=== PATIENT | female | born 1950 | race Caucasian/White ===

== ENCOUNTER 2018-09-18 23:20 | Inpatient (IN) | payer OTHER ==
[2018-09-19 00:14] LABS: ADD MAN DIFF? NO
[2018-09-19] MEDS: SOD CHLORIDE 0.9% 1,000 ML IV (00:17)
[2018-09-19] MEDS: ONDANSETRON 4 MG INJ IV (00:18)
[2018-09-19] MEDS: morphine 4 MG/ML VIAL IV (00:18)
[2018-09-19] MEDS: BELLADONNA/PHENOBARBITAL TAB PO (00:27)
[2018-09-19] MEDS: LIDOCAINE/MYLANTA 40 ML BTL PO (00:27)
[2018-09-19] MEDS: FAMOTIDINE 20 MG INJ IV ×2 (00:27→09:44)
[2018-09-19 00:35] LABS: WHITE BLOOD COUNT 10.4 10^3/ul (4.8-10.8)
[2018-09-19 00:35] LABS: BASOPHILS % 0.3 % (0.0-2.0); EOSINOPHILS # 0.1 10^3/ul (0.0-0.5); EOSINOPHILS % 0.9 % (0.0-7.0); HEMATOCRIT 38.4 % (37.0-47.0); HEMOGLOBIN 12.7 g/dl (12.0-16.0); LYMPHOCYTES # 2.5 10^3/ul (0.8-2.9); LYMPHOCYTES % 23.7 % (15.0-51.0); MEAN CORPUSCULAR HEMOGLOBIN 26.8 pg (29.0-33.0); MEAN CORPUSCULAR HGB CONC 33.1 g/dl (32.0-37.0); MEAN PLATELET VOLUME 10.2 fl (7.4-10.4); MONOCYTE # 0.7 10^3/ul (0.3-0.9); NEUTROPHIL # 7.1 10^3/ul (1.6-7.5); NEUTROPHILS % 67.7 % (39.0-77.0); PLATELET COUNT 263 10^3/UL (140-415); RED BLOOD COUNT 4.74 10^6/ul (4.20-5.40)
[2018-09-19 00:53] LABS: ALANINE AMINOTRANSFERASE 61 IU/L (13-69); ALBUMIN 4.9 g/dl (3.3-4.9); ALBUMIN/GLOBULIN RATIO 1.81; ALKALINE PHOSPHATASE 125 IU/L (42-121); ANION GAP 15 (5-13); ASPARTATE AMINO TRANSFERASE 133 IU/L (15-46); BILIRUBIN,INDIRECT 0.3 mg/dl (0-1.1); BILIRUBIN,TOTAL 0.3 mg/dl (0.2-1.3); BLOOD UREA NITROGEN 23 mg/dl (7-20); CARBON DIOXIDE 31 mmol/L (21-31); CHLORIDE 98 mmol/L (97-110); CREATININE 0.73 mg/dl (0.44-1.00); Estimated GFR > 60 mL/min (>60); GLUCOSE 116 mg/dl (70-220); LIPASE 84 U/L (23-300); POTASSIUM 3.1 mmol/L (3.5-5.1); SODIUM 144 mmol/L (135-144); TOTAL PROTEIN 7.6 g/dl (6.1-8.1)
[2018-09-19 00:55] LABS: INR 0.82; PROTIME 11.3 Sec (11.9-14.9); PT RATIO 0.9
[2018-09-19 01:04] LABS: TROPONIN-I < 0.012 ng/ml (0.000-0.120)
[2018-09-19 01:14] LABS: LACTIC ACID 2.2 mmol/L (0.5-2.0)
[2018-09-19 02:17] LABS: ADD UMIC NO; UR ASCORBIC ACID NEGATIVE (NEGATIVE); UR BILIRUBIN (Dip) NEGATIVE (NEGATIVE); UR BLOOD (Dip) NEGATIVE (NEGATIVE); UR CLARITY CLEAR (CLEAR); UR COLOR STRAW (YELLOW); UR GLUCOSE (Dip) NEGATIVE (NEGATIVE); UR KETONES (Dip) 1+ mg/dL (NEGATIVE); UR LEUKOCYTE ESTERASE (Dip) NEGATIVE Leu/ul (NEGATIVE); UR NITRITE (Dip) NEGATIVE (NEGATIVE); UR SPECIFIC GRAVITY (Dip) 1.011 (1.003-1.030); UR TOTAL PROTEIN (Dip) NEGATIVE (NEGATIVE); UR UROBILINOGEN (Dip) NEGATIVE (NEGATIVE)
[2018-09-19] MEDS: METOCLOPRAMIDE 10 MG INJ IV (03:12)
[2018-09-19] MEDS ORDERED: ACETAMINOPHEN 325 MG TAB PO (03:30)
[2018-09-19] MEDS ORDERED: ONDANSETRON 4 MG INJ IV ×2 (03:30→06:30)
[2018-09-19] MEDS ORDERED: NACL 0.9% 3 ML SYG IV (06:30)
[2018-09-19] MEDS ORDERED: NITROGLYCERIN (SL) 0.4 MG TAB SL ×2 (06:30)
[2018-09-19] MEDS: DEXTROSE 5%-0.45% NACL 1,000 ML IV ×2 (06:45→22:03)
[2018-09-19 08:18] LABS: ADD MAN DIFF? NO
[2018-09-19 08:25] LABS: BASOPHILS % 0.2 % (0.0-2.0); EOSINOPHILS % 0.2 % (0.0-7.0); HEMATOCRIT 34.5 % (37.0-47.0); HEMOGLOBIN 11.2 g/dl (12.0-16.0); LYMPHOCYTES # 1.2 10^3/ul (0.8-2.9); LYMPHOCYTES % 23.6 % (15.0-51.0); MEAN CORPUSCULAR HEMOGLOBIN 26.7 pg (29.0-33.0); MEAN CORPUSCULAR HGB CONC 32.5 g/dl (32.0-37.0); MEAN CORPUSCULAR VOLUME 82.1 fl (82.0-101.0); MEAN PLATELET VOLUME 10.1 fl (7.4-10.4); MONOCYTE # 0.5 10^3/ul (0.3-0.9); MONOCYTES % 9.7 % (0.0-11.0); NEUTROPHIL # 3.5 10^3/ul (1.6-7.5); NEUTROPHILS % 66.1 % (39.0-77.0); PLATELET COUNT 236 10^3/UL (140-415); RED CELL DISTRIBUTION WIDTH 13.2 % (11.5-14.5)
[2018-09-19 08:25] LABS: WHITE BLOOD COUNT 5.3 10^3/ul (4.8-10.8)
[2018-09-19 08:59] LABS: ALANINE AMINOTRANSFERASE 212 IU/L (13-69); ALBUMIN 3.6 g/dl (3.3-4.9); ALBUMIN/GLOBULIN RATIO 1.33; ALKALINE PHOSPHATASE 120 IU/L (42-121); ANION GAP 8 (5-13); ASPARTATE AMINO TRANSFERASE 347 IU/L (15-46); BILIRUBIN,INDIRECT 0.4 mg/dl (0-1.1); BILIRUBIN,TOTAL 0.4 mg/dl (0.2-1.3); BLOOD UREA NITROGEN 13 mg/dl (7-20); CALCIUM 8.2 mg/dl (8.4-10.2); CARBON DIOXIDE 32 mmol/L (21-31); CHLORIDE 102 mmol/L (97-110); CHOL/HDL RATIO 3.3 RATIO; CHOLESTEROL 181 mg/dl (100-200); CREATININE 0.59 mg/dl (0.44-1.00); Estimated GFR > 60 mL/min (>60); GLUCOSE 117 mg/dl (70-220); HDL CHOLESTEROL 54 mg/dl (33-92); LDL CHOLESTEROL,CALCULATED 116 mg/dl; POTASSIUM 3.1 mmol/L (3.5-5.1); SODIUM 142 mmol/L (135-144); TOTAL PROTEIN 6.3 g/dl (6.1-8.1); TRIGLYCERIDES 53 mg/dl (0-149)
[2018-09-19] MEDS: POTASSIUM CHLORIDE 50 ML IVPB (09:47)
[2018-09-19] MEDS: morphine 2 MG INJ IV (10:53)
[2018-09-19] MEDS ORDERED: HYDROCHLOROTHIAZIDE 12.5 MG CAP PO (12:00)
[2018-09-19] MEDS ORDERED: AMLODIPINE 10 MG TAB PO (12:00)
[2018-09-19] MEDS ORDERED: LORATADINE 10 MG TAB PO (12:00)
[2018-09-19] MEDS: PIPER-TAZO 3.375 GM IV (PMX) 100 ML IVPB ×2 (16:10→22:03)
[2018-09-19] MEDS: PANTOPRAZOLE (EC) 40 MG TAB PO (16:48)
[2018-09-19] MEDS: POTASSIUM CHLORIDE (SR) 20 MEQ TAB PO (16:48)
[2018-09-19] MEDS: BARIUM SULF 2% 450 ML BTL (BERRY SMOOTHIE) PO (16:48)
[2018-09-19] MEDS: GABAPENTIN 100 MG CAP PO ×2 (16:49→22:03)
[2018-09-19] MEDS: HEPARIN 5,000 UNIT/1 ML VIAL SC (22:07)
[2018-09-20] MEDS: DEXTROSE 5%-0.45% NACL 1,000 ML IV ×3 (01:48→22:05)
[2018-09-20 05:21] LABS: ADD MAN DIFF? NO
[2018-09-20 05:25] LABS: WHITE BLOOD COUNT 4.4 10^3/ul (4.8-10.8)
[2018-09-20 05:25] LABS: BASOPHILS % 0.7 % (0.0-2.0); EOSINOPHILS # 0.2 10^3/ul (0.0-0.5); EOSINOPHILS % 3.4 % (0.0-7.0); HEMATOCRIT 35.2 % (37.0-47.0); HEMOGLOBIN 11.2 g/dl (12.0-16.0); LYMPHOCYTES # 1.8 10^3/ul (0.8-2.9); LYMPHOCYTES % 41.5 % (15.0-51.0); MEAN CORPUSCULAR HGB CONC 31.8 g/dl (32.0-37.0); MEAN CORPUSCULAR VOLUME 84.8 fl (82.0-101.0); MEAN PLATELET VOLUME 9.6 fl (7.4-10.4); MONOCYTE # 0.5 10^3/ul (0.3-0.9); MONOCYTES % 10.2 % (0.0-11.0); NEUTROPHIL # 1.9 10^3/ul (1.6-7.5); PLATELET COUNT 218 10^3/UL (140-415); RED BLOOD COUNT 4.15 10^6/ul (4.20-5.40); RED CELL DISTRIBUTION WIDTH 13.4 % (11.5-14.5)
[2018-09-20 05:55] LABS: LACTIC ACID 0.7 mmol/L (0.5-2.0)
[2018-09-20 06:01] LABS: ANION GAP 5 (5-13); BLOOD UREA NITROGEN 6 mg/dl (7-20); CALCIUM 7.9 mg/dl (8.4-10.2); CARBON DIOXIDE 32 mmol/L (21-31); CHLORIDE 106 mmol/L (97-110); CREATININE 0.61 mg/dl (0.44-1.00); Estimated GFR > 60 mL/min (>60); GLUCOSE 102 mg/dl (70-220); MAGNESIUM 2.2 mg/dl (1.7-2.5); PHOSPHORUS 2.9 mg/dl (2.5-4.9); POTASSIUM 3.6 mmol/L (3.5-5.1); SODIUM 143 mmol/L (135-144)
[2018-09-20] MEDS: HYDROCHLOROTHIAZIDE 12.5 MG CAP PO (06:03)
[2018-09-20] MEDS: PIPER-TAZO 3.375 GM IV (PMX) 100 ML IVPB ×3 (06:03→21:11)
[2018-09-20] MEDS: PANTOPRAZOLE (EC) 40 MG TAB PO (06:03)
[2018-09-20] MEDS: HEPARIN 5,000 UNIT/1 ML VIAL SC ×2 (06:09→21:14)
[2018-09-20] MEDS: LORATADINE 10 MG TAB PO (08:45)
[2018-09-20] MEDS: AMLODIPINE 10 MG TAB PO (08:45)
[2018-09-20] MEDS: GABAPENTIN 100 MG CAP PO ×3 (08:45→21:11)
[2018-09-20] MEDS: POTASSIUM CHLORIDE (SR) 20 MEQ TAB PO (11:49)
[2018-09-20 16:51] LABS: ADD UMIC NO; UR ASCORBIC ACID NEGATIVE (NEGATIVE); UR BILIRUBIN (Dip) NEGATIVE (NEGATIVE); UR BLOOD (Dip) NEGATIVE (NEGATIVE); UR CLARITY CLEAR (CLEAR); UR COLOR COLORLESS (YELLOW); UR GLUCOSE (Dip) NEGATIVE (NEGATIVE); UR KETONES (Dip) NEGATIVE (NEGATIVE); UR LEUKOCYTE ESTERASE (Dip) NEGATIVE Leu/ul (NEGATIVE); UR NITRITE (Dip) NEGATIVE (NEGATIVE); UR SPECIFIC GRAVITY (Dip) 1.004 (1.003-1.030); UR TOTAL PROTEIN (Dip) NEGATIVE (NEGATIVE); UR UROBILINOGEN (Dip) NEGATIVE (NEGATIVE)
[2018-09-21] MEDS: DEXTROSE 5%-0.45% NACL 1,000 ML IV (03:19)
[2018-09-21] MEDS ORDERED: HYDROCORTISONE 1% 28 GM CR TOP (05:00)
[2018-09-21 05:08] LABS: ADD MAN DIFF? NO
[2018-09-21 05:10] LABS: BASOPHILS % 0.8 % (0.0-2.0); EOSINOPHILS # 0.3 10^3/ul (0.0-0.5); HEMATOCRIT 35.4 % (37.0-47.0); HEMOGLOBIN 11.5 g/dl (12.0-16.0); LYMPHOCYTES % 42.5 % (15.0-51.0); MEAN CORPUSCULAR HEMOGLOBIN 26.8 pg (29.0-33.0); MEAN CORPUSCULAR HGB CONC 32.5 g/dl (32.0-37.0); MEAN CORPUSCULAR VOLUME 82.5 fl (82.0-101.0); MEAN PLATELET VOLUME 9.6 fl (7.4-10.4); MONOCYTE # 0.5 10^3/ul (0.3-0.9); MONOCYTES % 10.6 % (0.0-11.0); NEUTROPHIL # 1.8 10^3/ul (1.6-7.5); NEUTROPHILS % 38.9 % (39.0-77.0); PLATELET COUNT 229 10^3/UL (140-415); RED BLOOD COUNT 4.29 10^6/ul (4.20-5.40); RED CELL DISTRIBUTION WIDTH 13.3 % (11.5-14.5)
[2018-09-21 05:10] LABS: WHITE BLOOD COUNT 4.7 10^3/ul (4.8-10.8)
[2018-09-21 05:38] LABS: ALANINE AMINOTRANSFERASE 133 IU/L (13-69); ALBUMIN 3.8 g/dl (3.3-4.9); ALBUMIN/GLOBULIN RATIO 1.72; ALKALINE PHOSPHATASE 97 IU/L (42-121); AMYLASE 79 U/L (11-123); ANION GAP 10 (5-13); ASPARTATE AMINO TRANSFERASE 63 IU/L (15-46); BILIRUBIN,INDIRECT 0.3 mg/dl (0-1.1); BILIRUBIN,TOTAL 0.3 mg/dl (0.2-1.3); BLOOD UREA NITROGEN 11 mg/dl (7-20); CARBON DIOXIDE 31 mmol/L (21-31); CHLORIDE 102 mmol/L (97-110); CREATININE 0.63 mg/dl (0.44-1.00); Estimated GFR > 60 mL/min (>60); GLUCOSE 107 mg/dl (70-220); LIPASE 95 U/L (23-300); POTASSIUM 3.2 mmol/L (3.5-5.1); SODIUM 143 mmol/L (135-144)
[2018-09-21 05:39] LABS: LACTIC ACID 0.9 mmol/L (0.5-2.0)
[2018-09-21] MEDS: PIPER-TAZO 3.375 GM IV (PMX) 100 ML IVPB (05:54)
[2018-09-21] MEDS: HEPARIN 5,000 UNIT/1 ML VIAL SC (05:55)
[2018-09-21] MEDS: HYDROCHLOROTHIAZIDE 12.5 MG CAP PO (05:56)
[2018-09-21] MEDS: PANTOPRAZOLE (EC) 40 MG TAB PO (06:01)
[2018-09-21] MEDS: TRIMETHOPRIM/SULFAMETHOX (DS) TAB PO (09:06)
[2018-09-21] MEDS: GABAPENTIN 100 MG CAP PO (09:06)
[2018-09-21] MEDS: LORATADINE 10 MG TAB PO (09:07)
[2018-09-21] MEDS: POTASSIUM CHLORIDE (SR) 20 MEQ TAB PO (09:07)
[2018-09-21] MEDS: AMLODIPINE 10 MG TAB PO (09:09)
== END 2018-09-21 10:00 | disposition home or self-care (01) | DRG 690 ==
LOC: MS1 09-20 21:42 → E/R 23:20
DX: N39.0 Urinary tract infection, site not specified (principal); E87.2 Acidosis; I82.512 Chronic embolism and thrombosis of left femoral vein; B96.1 Klebsiella pneumoniae [K. pneumoniae] as the cause of diseases classified elsewhere; E87.6 Hypokalemia; I10 Essential (primary) hypertension; K21.9 Gastro-esophageal reflux disease without esophagitis; Z79.01 Long term (current) use of anticoagulants; G62.9 Polyneuropathy, unspecified; K57.30 Diverticulosis of large intestine without perforation or abscess without bleeding; R74.0 Nonspecific elevation of levels of transaminase and lactic acid dehydrogenase [LDH]
CPT/HCPCS: 36415; 71045; 74176; 76705; 78226; 80048; 80053; 80061; 81003; 82150; 83605; 83690; 83735; 84100; 84484; 85025; 85610; 87040; 87086; 87591; 93005; 96374; 96375; 99285-25

== ENCOUNTER 2018-10-10 11:27 | Emergency (ER) | payer OTHER ==
[2018-10-10] MEDS: SOD CHLORIDE 0.9% 500 ML IV (14:54)
[2018-10-10] MEDS: morphine 4 MG/ML VIAL IV (14:54)
[2018-10-10 14:55] LABS: ADD MAN DIFF? NO
[2018-10-10 15:03] LABS: BASOPHILS % 0.5 % (0.0-2.0); EOSINOPHILS # 0.1 10^3/ul (0.0-0.5); EOSINOPHILS % 0.9 % (0.0-7.0); LYMPHOCYTES # 1.3 10^3/ul (0.8-2.9); LYMPHOCYTES % 19.5 % (15.0-51.0); MEAN CORPUSCULAR HEMOGLOBIN 26.7 pg (29.0-33.0); MEAN CORPUSCULAR HGB CONC 32.4 g/dl (32.0-37.0); MEAN CORPUSCULAR VOLUME 82.2 fl (82.0-101.0); MEAN PLATELET VOLUME 9.7 fl (7.4-10.4); MONOCYTE # 0.5 10^3/ul (0.3-0.9); MONOCYTES % 7.3 % (0.0-11.0); NEUTROPHIL # 4.6 10^3/ul (1.6-7.5); NEUTROPHILS % 71.5 % (39.0-77.0); PLATELET COUNT 191 10^3/UL (140-415); RED CELL DISTRIBUTION WIDTH 12.9 % (11.5-14.5)
[2018-10-10 15:03] LABS: WHITE BLOOD COUNT 6.4 10^3/ul (4.8-10.8)
[2018-10-10 15:31] LABS: ALANINE AMINOTRANSFERASE 37 IU/L (13-69); ALBUMIN 4.2 g/dl (3.3-4.9); ALKALINE PHOSPHATASE 83 IU/L (42-121); ANION GAP 10 (5-13); ASPARTATE AMINO TRANSFERASE 40 IU/L (15-46); BILIRUBIN,INDIRECT 0.3 mg/dl (0-1.1); BILIRUBIN,TOTAL 0.3 mg/dl (0.2-1.3); BLOOD UREA NITROGEN 13 mg/dl (7-20); CALCIUM 9.1 mg/dl (8.4-10.2); CARBON DIOXIDE 33 mmol/L (21-31); CHLORIDE 98 mmol/L (97-110); CREATININE 0.63 mg/dl (0.44-1.00); Estimated GFR > 60 mL/min (>60); GLUCOSE 102 mg/dl (70-220); LIPASE 36 U/L (23-300); POTASSIUM 3.2 mmol/L (3.5-5.1); SODIUM 141 mmol/L (135-144); TOTAL PROTEIN 7.7 g/dl (6.1-8.1)
[2018-10-10 15:36] LABS: ADD UMIC YES; UR ASCORBIC ACID NEGATIVE (NEGATIVE); UR BILIRUBIN (Dip) NEGATIVE (NEGATIVE); UR BLOOD (Dip) 1+ mg/dL (NEGATIVE); UR CLARITY CLEAR (CLEAR); UR COLOR YELLOW (YELLOW); UR GLUCOSE (Dip) NEGATIVE (NEGATIVE); UR KETONES (Dip) 1+ mg/dL (NEGATIVE); UR LEUKOCYTE ESTERASE (Dip) 1+ Leu/ul (NEGATIVE); UR NITRITE (Dip) NEGATIVE (NEGATIVE); UR RBC 3 /HPF (0-5); UR SPECIFIC GRAVITY (Dip) 1.009 (1.003-1.030); UR TOTAL PROTEIN (Dip) NEGATIVE (NEGATIVE); UR UROBILINOGEN (Dip) NEGATIVE (NEGATIVE); UR WBC 6 /HPF (0-5)
[2018-10-10] MEDS: POTASSIUM CHLORIDE (SR) 20 MEQ TAB PO (17:16)
== END 2018-10-10 17:20 | disposition home or self-care (01) ==
LOC: E/R 11:27
DX: E87.6 Hypokalemia (principal); K52.9 Noninfective gastroenteritis and colitis, unspecified; I10 Essential (primary) hypertension
CPT/HCPCS: 71045; 74176; 80053; 81001; 83690; 85025; 96361; 96374; 99285-25

== ENCOUNTER 2018-11-16 15:31 | Inpatient (IN) | payer OTHER ==
[2018-11-16 19:13] LABS: ADD MAN DIFF? NO
[2018-11-16 19:14] LABS: WHITE BLOOD COUNT 10.7 10^3/ul (4.8-10.8)
[2018-11-16 19:14] LABS: BASOPHILS % 0.1 % (0.0-2.0); EOSINOPHILS % 0.2 % (0.0-7.0); HEMATOCRIT 37.8 % (37.0-47.0); HEMOGLOBIN 12.3 g/dl (12.0-16.0); LYMPHOCYTES # 1.4 10^3/ul (0.8-2.9); LYMPHOCYTES % 12.8 % (15.0-51.0); MEAN CORPUSCULAR HEMOGLOBIN 26.5 pg (29.0-33.0); MEAN CORPUSCULAR HGB CONC 32.5 g/dl (32.0-37.0); MEAN CORPUSCULAR VOLUME 81.5 fl (82.0-101.0); MEAN PLATELET VOLUME 9.2 fl (7.4-10.4); MONOCYTE # 0.7 10^3/ul (0.3-0.9); MONOCYTES % 6.6 % (0.0-11.0); NEUTROPHIL # 8.6 10^3/ul (1.6-7.5); NEUTROPHILS % 79.7 % (39.0-77.0); PLATELET COUNT 241 10^3/UL (140-415); RED BLOOD COUNT 4.64 10^6/ul (4.20-5.40); RED CELL DISTRIBUTION WIDTH 13.4 % (11.5-14.5)
[2018-11-16] MEDS: SOD CHLORIDE 0.9% 1,000 ML IV ×3 (19:15→22:27)
[2018-11-16] MEDS: ONDANSETRON 4 MG INJ IV ×2 (19:15→20:51)
[2018-11-16] MEDS: morphine 4 MG/ML VIAL IV (19:15)
[2018-11-16 19:25] LABS: ADD UMIC NO; UR ASCORBIC ACID NEGATIVE (NEGATIVE); UR BILIRUBIN (Dip) NEGATIVE (NEGATIVE); UR BLOOD (Dip) NEGATIVE (NEGATIVE); UR CLARITY CLEAR (CLEAR); UR COLOR YELLOW (YELLOW); UR GLUCOSE (Dip) NEGATIVE (NEGATIVE); UR KETONES (Dip) NEGATIVE (NEGATIVE); UR LEUKOCYTE ESTERASE (Dip) NEGATIVE Leu/ul (NEGATIVE); UR NITRITE (Dip) NEGATIVE (NEGATIVE); UR SPECIFIC GRAVITY (Dip) 1.011 (1.003-1.030); UR TOTAL PROTEIN (Dip) NEGATIVE (NEGATIVE); UR UROBILINOGEN (Dip) 2+ mg/dL (NEGATIVE)
[2018-11-16 19:33] LABS: ALANINE AMINOTRANSFERASE 308 IU/L (13-69); ALBUMIN 4.2 g/dl (3.3-4.9); ALBUMIN/GLOBULIN RATIO 1.35; ALKALINE PHOSPHATASE 179 IU/L (42-121); AMYLASE 537 U/L (11-123); ANION GAP 4 (5-13); ASPARTATE AMINO TRANSFERASE 581 IU/L (15-46); BILIRUBIN,INDIRECT 0.4 mg/dl (0-1.1); BILIRUBIN,TOTAL 0.4 mg/dl (0.2-1.3); BLOOD UREA NITROGEN 17 mg/dl (7-20); CALCIUM 9.6 mg/dl (8.4-10.2); CARBON DIOXIDE 37 mmol/L (21-31); CHLORIDE 99 mmol/L (97-110); CREATININE 0.77 mg/dl (0.44-1.00); Estimated GFR > 60 mL/min (>60); GLUCOSE 129 mg/dl (70-220); SODIUM 140 mmol/L (135-144); TOTAL PROTEIN 7.3 g/dl (6.1-8.1)
[2018-11-16 19:36] LABS: INR 0.87; PROTIME 11.9 Sec (11.9-14.9); PT RATIO 0.9
[2018-11-16 19:44] LABS: TROPONIN-I < 0.012 ng/ml (0.000-0.120)
[2018-11-16 19:53] LABS: LIPASE 5742 U/L (23-300)
[2018-11-16 20:02] LABS: PARTIAL THROMBOPLASTIN TIME 26.6 Sec (23.0-35.0)
[2018-11-16] MEDS ORDERED: ONDANSETRON 4 MG INJ IV (20:30)
[2018-11-16] MEDS ORDERED: ACETAMINOPHEN 325 MG TAB PO (20:30)
[2018-11-16] MEDS: HYDROmorphONE 1 MG/ML SYG IV (20:51)
[2018-11-16] MEDS: IOHEXOL 300MG/ML 150 ML BTL (20:57)
[2018-11-16] MEDS: SOD CHLORIDE 0.9% 100 ML (20:57)
[2018-11-16] MEDS ORDERED: ACETAMINOPHEN 650 MG SUPP PR (21:00)
[2018-11-16] MEDS ORDERED: NACL 0.9% 3 ML SYG IV (21:00)
[2018-11-16] MEDS ORDERED: morphine 2 MG INJ IV (21:00)
[2018-11-16] MEDS ORDERED: hydrALAzine 20 MG INJ IV (21:00)
[2018-11-16] MEDS: POTASSIUM CHLORIDE 100 ML IVPB (22:27)
[2018-11-17] MEDS: POTASSIUM CHLORIDE 100 ML IVPB ×3 (00:24→05:30)
[2018-11-17] MEDS: SOD CHLORIDE 0.9% 1,000 ML IV ×4 (04:56→23:54)
[2018-11-17] MEDS: PANTOPRAZOLE 40 MG INJ IV (05:31)
[2018-11-17 06:46] LABS: ADD MAN DIFF? NO
[2018-11-17 06:55] LABS: BASOPHILS % 0.3 % (0.0-2.0); EOSINOPHILS # 0.1 10^3/ul (0.0-0.5); HEMATOCRIT 34.2 % (37.0-47.0); HEMOGLOBIN 11.1 g/dl (12.0-16.0); LYMPHOCYTES # 1.4 10^3/ul (0.8-2.9); LYMPHOCYTES % 19.7 % (15.0-51.0); MEAN CORPUSCULAR HEMOGLOBIN 26.9 pg (29.0-33.0); MEAN CORPUSCULAR HGB CONC 32.5 g/dl (32.0-37.0); MEAN PLATELET VOLUME 9.8 fl (7.4-10.4); MONOCYTE # 0.5 10^3/ul (0.3-0.9); MONOCYTES % 7.7 % (0.0-11.0); PLATELET COUNT 240 10^3/UL (140-415); RED BLOOD COUNT 4.12 10^6/ul (4.20-5.40); RED CELL DISTRIBUTION WIDTH 13.6 % (11.5-14.5)
[2018-11-17 07:23] LABS: ALANINE AMINOTRANSFERASE 273 IU/L (13-69); ALBUMIN 3.7 g/dl (3.3-4.9); ALBUMIN/GLOBULIN RATIO 1.27; ALKALINE PHOSPHATASE 132 IU/L (42-121); ANION GAP 9 (5-13); ASPARTATE AMINO TRANSFERASE 233 IU/L (15-46); BILIRUBIN,INDIRECT 0.5 mg/dl (0-1.1); BILIRUBIN,TOTAL 0.5 mg/dl (0.2-1.3); BLOOD UREA NITROGEN 9 mg/dl (7-20); CALCIUM 8.7 mg/dl (8.4-10.2); CARBON DIOXIDE 29 mmol/L (21-31); CHLORIDE 103 mmol/L (97-110); CHOL/HDL RATIO 2.9 RATIO; CHOLESTEROL 176 mg/dl (100-200); Estimated GFR > 60 mL/min (>60); GLUCOSE 104 mg/dl (70-220); HDL CHOLESTEROL 60 mg/dl (33-92); LDL CHOLESTEROL,CALCULATED 103 mg/dl; MAGNESIUM 1.9 mg/dl (1.7-2.5); POTASSIUM 4.2 mmol/L (3.5-5.1); SODIUM 141 mmol/L (135-144); TOTAL PROTEIN 6.6 g/dl (6.1-8.1); TRIGLYCERIDES 65 mg/dl (0-149)
[2018-11-17] MEDS: HYDROCHLOROTHIAZIDE 12.5 MG CAP PO (10:48)
[2018-11-17] MEDS: AMLODIPINE 10 MG TAB PO (10:48)
[2018-11-17 12:36] LABS: LIPASE 193 U/L (23-300)
[2018-11-17] MEDS: GABAPENTIN 100 MG CAP PO ×2 (13:14→21:01)
[2018-11-18] MEDS: FAMOTIDINE 20 MG INJ IV (00:26)
[2018-11-18] MEDS: PANTOPRAZOLE 40 MG INJ IV (05:50)
[2018-11-18 07:05] LABS: ADD MAN DIFF? NO
[2018-11-18 07:06] LABS: BASOPHILS % 0.8 % (0.0-2.0); EOSINOPHILS # 0.2 10^3/ul (0.0-0.5); EOSINOPHILS % 3.2 % (0.0-7.0); HEMATOCRIT 34.4 % (37.0-47.0); HEMOGLOBIN 11.4 g/dl (12.0-16.0); LYMPHOCYTES # 1.8 10^3/ul (0.8-2.9); LYMPHOCYTES % 36.3 % (15.0-51.0); MEAN CORPUSCULAR HEMOGLOBIN 27.4 pg (29.0-33.0); MEAN CORPUSCULAR HGB CONC 33.1 g/dl (32.0-37.0); MEAN CORPUSCULAR VOLUME 82.7 fl (82.0-101.0); MEAN PLATELET VOLUME 9.4 fl (7.4-10.4); MONOCYTE # 0.5 10^3/ul (0.3-0.9); MONOCYTES % 10.3 % (0.0-11.0); NEUTROPHIL # 2.5 10^3/ul (1.6-7.5); PLATELET COUNT 211 10^3/UL (140-415); RED BLOOD COUNT 4.16 10^6/ul (4.20-5.40); RED CELL DISTRIBUTION WIDTH 13.4 % (11.5-14.5)
[2018-11-18] MEDS: SOD CHLORIDE 0.9% 1,000 ML IV ×2 (07:25→18:47)
[2018-11-18 07:46] LABS: LIPASE 47 U/L (23-300)
[2018-11-18 07:46] LABS: AMYLASE 41 U/L (11-123)
[2018-11-18 07:47] LABS: ALANINE AMINOTRANSFERASE 178 IU/L (13-69); ALBUMIN 3.6 g/dl (3.3-4.9); ALBUMIN/GLOBULIN RATIO 1.38; ALKALINE PHOSPHATASE 122 IU/L (42-121); ANION GAP 5 (5-13); ASPARTATE AMINO TRANSFERASE 89 IU/L (15-46); BILIRUBIN,INDIRECT 0.7 mg/dl (0-1.1); BILIRUBIN,TOTAL 0.7 mg/dl (0.2-1.3); BLOOD UREA NITROGEN 11 mg/dl (7-20); CALCIUM 8.9 mg/dl (8.4-10.2); CARBON DIOXIDE 30 mmol/L (21-31); CHLORIDE 105 mmol/L (97-110); CREATININE 0.67 mg/dl (0.44-1.00); Estimated GFR > 60 mL/min (>60); GLUCOSE 84 mg/dl (70-220); MAGNESIUM 1.8 mg/dl (1.7-2.5); SODIUM 140 mmol/L (135-144); TOTAL PROTEIN 6.2 g/dl (6.1-8.1)
[2018-11-18] MEDS: GABAPENTIN 100 MG CAP PO ×3 (08:56→21:06)
[2018-11-18] MEDS: HYDROCHLOROTHIAZIDE 12.5 MG CAP PO (08:57)
[2018-11-18] MEDS: AMLODIPINE 10 MG TAB PO (08:57)
[2018-11-18] MEDS: POTASSIUM CHLORIDE (SR) 20 MEQ TAB PO ×2 (10:55→14:48)
[2018-11-18] MEDS: FLUTICASONE 0.05% 16 GM NAS SPRAY NASAL ×2 (10:56→21:06)
[2018-11-19] MEDS: SOD CHLORIDE 0.9% 1,000 ML IV ×3 (02:05→21:04)
[2018-11-19] MEDS: PANTOPRAZOLE (EC) 40 MG TAB PO (06:00)
[2018-11-19 06:21] LABS: ADD MAN DIFF? NO
[2018-11-19 06:28] LABS: WHITE BLOOD COUNT 5.5 10^3/ul (4.8-10.8)
[2018-11-19 06:28] LABS: BASOPHILS % 0.4 % (0.0-2.0); EOSINOPHILS # 0.2 10^3/ul (0.0-0.5); EOSINOPHILS % 2.9 % (0.0-7.0); HEMATOCRIT 33.4 % (37.0-47.0); HEMOGLOBIN 10.9 g/dl (12.0-16.0); LYMPHOCYTES # 1.6 10^3/ul (0.8-2.9); LYMPHOCYTES % 29.8 % (15.0-51.0); MEAN CORPUSCULAR HEMOGLOBIN 26.7 pg (29.0-33.0); MEAN CORPUSCULAR HGB CONC 32.6 g/dl (32.0-37.0); MEAN CORPUSCULAR VOLUME 81.9 fl (82.0-101.0); MEAN PLATELET VOLUME 9.5 fl (7.4-10.4); MONOCYTE # 0.6 10^3/ul (0.3-0.9); MONOCYTES % 11.5 % (0.0-11.0); NEUTROPHILS % 55.2 % (39.0-77.0); PLATELET COUNT 205 10^3/UL (140-415); RED BLOOD COUNT 4.08 10^6/ul (4.20-5.40); RED CELL DISTRIBUTION WIDTH 13.5 % (11.5-14.5)
[2018-11-19 06:47] LABS: LIPASE 50 U/L (23-300)
[2018-11-19 06:47] LABS: AMYLASE 47 U/L (11-123)
[2018-11-19 07:13] LABS: ALANINE AMINOTRANSFERASE 123 IU/L (13-69); ALBUMIN 3.4 g/dl (3.3-4.9); ALBUMIN/GLOBULIN RATIO 1.21; ALKALINE PHOSPHATASE 89 IU/L (42-121); ANION GAP 12 (5-13); ASPARTATE AMINO TRANSFERASE 42 IU/L (15-46); BILIRUBIN,INDIRECT 0.6 mg/dl (0-1.1); BILIRUBIN,TOTAL 0.6 mg/dl (0.2-1.3); BLOOD UREA NITROGEN 9 mg/dl (7-20); CARBON DIOXIDE 29 mmol/L (21-31); CHLORIDE 102 mmol/L (97-110); CREATININE 0.66 mg/dl (0.44-1.00); Estimated GFR > 60 mL/min (>60); GLUCOSE 104 mg/dl (70-220); POTASSIUM 3.5 mmol/L (3.5-5.1); SODIUM 143 mmol/L (135-144); TOTAL PROTEIN 6.2 g/dl (6.1-8.1)
[2018-11-19] MEDS: GABAPENTIN 100 MG CAP PO ×3 (08:46→21:02)
[2018-11-19] MEDS: FLUTICASONE 0.05% 16 GM NAS SPRAY NASAL ×2 (08:46→21:03)
[2018-11-19] MEDS: AMLODIPINE 10 MG TAB PO (08:47)
[2018-11-19] MEDS: HYDROCHLOROTHIAZIDE 12.5 MG CAP PO (08:47)
[2018-11-19] MEDS: POLYETHYLENE GLYCOL 17 GM PACKET PO (16:19)
[2018-11-20] MEDS: SOD CHLORIDE 0.9% 1,000 ML IV ×3 (04:32→22:36)
[2018-11-20] MEDS: PANTOPRAZOLE (EC) 40 MG TAB PO (05:30)
[2018-11-20 06:46] LABS: ADD MAN DIFF? NO
[2018-11-20 06:52] LABS: BASOPHILS % 0.7 % (0.0-2.0); EOSINOPHILS # 0.2 10^3/ul (0.0-0.5); EOSINOPHILS % 4.6 % (0.0-7.0); HEMATOCRIT 34.8 % (37.0-47.0); HEMOGLOBIN 11.4 g/dl (12.0-16.0); LYMPHOCYTES # 1.5 10^3/ul (0.8-2.9); LYMPHOCYTES % 34.6 % (15.0-51.0); MEAN CORPUSCULAR HGB CONC 32.8 g/dl (32.0-37.0); MEAN CORPUSCULAR VOLUME 82.5 fl (82.0-101.0); MEAN PLATELET VOLUME 9.5 fl (7.4-10.4); MONOCYTE # 0.5 10^3/ul (0.3-0.9); MONOCYTES % 12.4 % (0.0-11.0); NEUTROPHIL # 2.1 10^3/ul (1.6-7.5); NEUTROPHILS % 47.5 % (39.0-77.0); PLATELET COUNT 208 10^3/UL (140-415); RED BLOOD COUNT 4.22 10^6/ul (4.20-5.40); RED CELL DISTRIBUTION WIDTH 13.7 % (11.5-14.5)
[2018-11-20 06:52] LABS: WHITE BLOOD COUNT 4.3 10^3/ul (4.8-10.8)
[2018-11-20] MEDS ORDERED: CEFAZOLIN 1 GM INJ (07:00)
[2018-11-20] MEDS ORDERED: DEXAMETHASONE 4 MG/ML 5 ML INJ (07:00)
[2018-11-20] MEDS ORDERED: SUGAMMADEX SODIUM 200 MG/2 ML VIAL IV (07:00)
[2018-11-20] MEDS ORDERED: DESFLURANE 15 MIN (07:00)
[2018-11-20] MEDS: FLUTICASONE 0.05% 16 GM NAS SPRAY NASAL ×2 (08:08→21:00)
[2018-11-20] MEDS: HYDROCHLOROTHIAZIDE 12.5 MG CAP PO (08:08)
[2018-11-20] MEDS: GABAPENTIN 100 MG CAP PO ×3 (08:09→21:00)
[2018-11-20] MEDS: AMLODIPINE 10 MG TAB PO (08:09)
[2018-11-20] MEDS: POLYETHYLENE GLYCOL 17 GM PACKET PO (08:09)
[2018-11-20] MEDS ORDERED: IOHEXOL 300MG/ML 30 ML BTL (17:59)
[2018-11-20] MEDS ORDERED: BUPIVACAINE 0.5%/EPI (SDV) 30 ML INJ (17:59)
[2018-11-20] MEDS ORDERED: ROCURONIUM 50 MG INJ (18:01)
[2018-11-20] MEDS ORDERED: MIDAZOLAM 1 MG/ML 2 ML INJ (18:01)
[2018-11-20] MEDS ORDERED: SUCCINYLCHOLINE CHLORIDE 100 MG/5 ML SYG IV (18:01)
[2018-11-20] MEDS ORDERED: PROPOFOL 20 ML (18:01)
[2018-11-20] MEDS ORDERED: FENTAnyl 50 MCG/ML VIAL (18:01)
[2018-11-20] MEDS ORDERED: LIDOCAINE 2% (SDV) 5 ML INJ (18:01)
[2018-11-20] MEDS ORDERED: METOCLOPRAMIDE 10 MG INJ (18:01)
[2018-11-20] MEDS ORDERED: LIDOCAINE 1% (MPF) 30 ML INJ ×2 (18:04→18:33)
[2018-11-20] MEDS ORDERED: LIDOCAINE 1%/EPI (1:100,000) (MDV) 20 ML (18:07)
[2018-11-20] MEDS ORDERED: DIPHENHYDRAMINE 50 MG INJ IV (19:30)
[2018-11-20] MEDS ORDERED: LABETALOL HCL 20MG INJ IV (19:30)
[2018-11-20] MEDS ORDERED: hydrALAzine 20 MG INJ IV (19:30)
[2018-11-20] MEDS ORDERED: FENTAnyl 50 MCG/ML VIAL IV ×2 (19:30)
[2018-11-20] MEDS ORDERED: KETOROLAC 30 MG INJ IV (19:30)
[2018-11-20] MEDS ORDERED: HYDROmorphONE 1 MG/5 ML IV SYRINGE IV ×3 (19:30)
[2018-11-20] MEDS ORDERED: LEVALBUTEROL (NEB) 1.25 MG/0.5 ML AMP HHN (19:30)
[2018-11-20] MEDS ORDERED: ROPIVACAINE 0.5 % 30 ML VIAL (20:29)
[2018-11-20] MEDS: BUPIVACAINE 0.25% (MPF) 30 ML INJ (20:36)
[2018-11-20] MEDS: MEPERIDINE 25 MG INJ IV (21:29)
[2018-11-20] MEDS: ONDANSETRON 4 MG INJ IV (21:29)
[2018-11-20] MEDS: morphine LIQ (10 MG/5 ML) CUP PO (22:46)
[2018-11-21] MEDS: SOD CHLORIDE 0.9% 1,000 ML IV ×4 (03:30→20:12)
[2018-11-21] MEDS: PANTOPRAZOLE (EC) 40 MG TAB PO (06:05)
[2018-11-21 06:56] LABS: ADD MAN DIFF? NO
[2018-11-21 07:00] LABS: BASOPHILS % 0.2 % (0.0-2.0); HEMATOCRIT 33.4 % (37.0-47.0); LYMPHOCYTES # 0.7 10^3/ul (0.8-2.9); MEAN CORPUSCULAR HEMOGLOBIN 26.8 pg (29.0-33.0); MEAN CORPUSCULAR HGB CONC 32.9 g/dl (32.0-37.0); MEAN CORPUSCULAR VOLUME 81.5 fl (82.0-101.0); MEAN PLATELET VOLUME 9.5 fl (7.4-10.4); MONOCYTE # 0.4 10^3/ul (0.3-0.9); MONOCYTES % 4.2 % (0.0-11.0); NEUTROPHIL # 8.1 10^3/ul (1.6-7.5); NEUTROPHILS % 87.3 % (39.0-77.0); PLATELET COUNT 210 10^3/UL (140-415); RED CELL DISTRIBUTION WIDTH 13.2 % (11.5-14.5)
[2018-11-21 07:00] LABS: WHITE BLOOD COUNT 9.3 10^3/ul (4.8-10.8)
[2018-11-21 07:39] LABS: ALANINE AMINOTRANSFERASE 177 IU/L (13-69); ALBUMIN 3.8 g/dl (3.3-4.9); ALBUMIN/GLOBULIN RATIO 1.31; ALKALINE PHOSPHATASE 108 IU/L (42-121); ANION GAP 11 (5-13); ASPARTATE AMINO TRANSFERASE 177 IU/L (15-46); BILIRUBIN,INDIRECT 0.5 mg/dl (0-1.1); BILIRUBIN,TOTAL 0.5 mg/dl (0.2-1.3); BLOOD UREA NITROGEN 8 mg/dl (7-20); CALCIUM 8.2 mg/dl (8.4-10.2); CARBON DIOXIDE 30 mmol/L (21-31); CHLORIDE 99 mmol/L (97-110); CREATININE 0.55 mg/dl (0.44-1.00); Estimated GFR > 60 mL/min (>60); GLUCOSE 125 mg/dl (70-220); SODIUM 140 mmol/L (135-144); TOTAL PROTEIN 6.7 g/dl (6.1-8.1)
[2018-11-21 07:48] LABS: POTASSIUM 2.8 mmol/L (3.5-5.1)
[2018-11-21] MEDS: AMLODIPINE 10 MG TAB PO (08:14)
[2018-11-21] MEDS: GABAPENTIN 100 MG CAP PO ×3 (08:14→20:11)
[2018-11-21] MEDS: FLUTICASONE 0.05% 16 GM NAS SPRAY NASAL ×2 (08:15→20:30)
[2018-11-21] MEDS: POLYETHYLENE GLYCOL 17 GM PACKET PO (08:15)
[2018-11-21] MEDS: HYDROCHLOROTHIAZIDE 12.5 MG CAP PO (08:16)
[2018-11-21] MEDS: ONDANSETRON 4 MG INJ IV (08:48)
[2018-11-21] MEDS ORDERED: POTASSIUM CHLORIDE 100 ML IVPB (09:00)
[2018-11-21] MEDS: POTASSIUM CHLORIDE (SR) 20 MEQ TAB PO (09:58)
[2018-11-21] MEDS: POTASSIUM CHLORIDE 100 ML IVPB ×2 (10:01→12:38)
[2018-11-21] MEDS: morphine LIQ (10 MG/5 ML) CUP PO (20:12)
[2018-11-22] MEDS: SOD CHLORIDE 0.9% 1,000 ML IV (05:10)
[2018-11-22] MEDS: PANTOPRAZOLE (EC) 40 MG TAB PO (05:10)
[2018-11-22] MEDS: morphine LIQ (10 MG/5 ML) CUP PO ×3 (05:13→14:17)
[2018-11-22] MEDS: FLUTICASONE 0.05% 16 GM NAS SPRAY NASAL (09:00)
[2018-11-22] MEDS: HYDROCHLOROTHIAZIDE 12.5 MG CAP PO (09:07)
[2018-11-22] MEDS: GABAPENTIN 100 MG CAP PO ×2 (09:07→13:05)
[2018-11-22] MEDS: POLYETHYLENE GLYCOL 17 GM PACKET PO (09:07)
[2018-11-22] MEDS: AMLODIPINE 10 MG TAB PO (09:07)
[2018-11-22 12:41] LABS: ANION GAP 7 (5-13); BLOOD UREA NITROGEN 5 mg/dl (7-20); CALCIUM 8.5 mg/dl (8.4-10.2); CARBON DIOXIDE 30 mmol/L (21-31); CHLORIDE 104 mmol/L (97-110); CREATININE 0.55 mg/dl (0.44-1.00); Estimated GFR > 60 mL/min (>60); GLUCOSE 104 mg/dl (70-220); SODIUM 141 mmol/L (135-144)
[2018-11-22] MEDS: POTASSIUM CHLORIDE (SR) 20 MEQ TAB PO (15:08)
[2018-11-22] MEDS ORDERED: IBUPROFEN 400 MG TAB PO (17:30)
[2018-11-22] MEDS: NA PHOSPHATE/BIPHOS 133 ML ENEMA PR (17:59)
== END 2018-11-22 18:51 | disposition home or self-care (01) | DRG 417 ==
LOC: E/R 15:31 → TEL 20:21 → PP2 11-21 19:27
PROC: 0FT44ZZ Resection of Gallbladder, Percutaneous Endoscopic Approach (ICD-10-PCS; principal; 2018-11-20 19:00)
PROC: 0FB04ZX Excision of Liver, Percutaneous Endoscopic Approach, Diagnostic (ICD-10-PCS; 2018-11-20 19:00)
DX: K80.20 Calculus of gallbladder without cholecystitis without obstruction (principal); K85.10 Biliary acute pancreatitis without necrosis or infection; Z86.718 Personal history of other venous thrombosis and embolism; Z79.02 Long term (current) use of antithrombotics/antiplatelets; I10 Essential (primary) hypertension; K21.9 Gastro-esophageal reflux disease without esophagitis; K76.9 Liver disease, unspecified
CPT/HCPCS: 36415; 71045; 74177; 74181; 76705; 80048; 80053; 80061; 81003; 82150; 83690; 83735; 84484; 85025; 85610; 85730; 87040; 87086; 88304; 88307; 88313; 93970; 96361; 96374; 96375; 99285-25